=== PATIENT | female | born 1970 | race Caucasian/White ===

== ENCOUNTER 2017-12-30 16:35 | Emergency (ER) | payer OTHER ==
--- NOTE | 2017-12-30 18:07 | EDPHY ---
H & P Time Seen by Provider: 12/30/17 18:06 HPI/ROS: Chief complaint. Dog bite to upper lip HPI. 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 She was transporting dogs from [facility] to [facility]. She was placing the puppy and a kennel and then down in the dog reached up and better in the upper lip. It was irrigated at the scene. Patient was in [place] at that time and drove to [place]. Patient would like a plastic surgeon and there was apparently no plastic surgeon available in [place]. ROS Constitutional. no fever/chills, no weakness Eyes. no problems with vision ENT. no sore throat, no nasal drainage Cardiovascular. no chest pain Respiratory. no shortness of breath, no cough Abdominal. no abdominal pain, no nausea/vomiting, no diarrhea . no problems urinating MS. no calf pain/swelling, no neck/back pain, no joint pain Skin. Laceration to upper lip Lymph. no swollen glands Neuro. no headache, no dizziness, no difficulty walking or with speech Past Medical/Surgical History: Healthy Social History: , nonsmoker, no alcohol Smoking Status: Never smoked Physical Exam: General Appearance: Alert well-developed female mild distress vital signs stable Eyes: Pupils equal and round no pallor or injection. ENT, Mouth: Mucous membranes are moist. Respiratory: There are no retractions, lungs are clear to auscultation. Cardiovascular: Regular rate and rhythm. Gastrointestinal: Abdomen is soft and nontender, no masses, bowel sounds normal. Neurological: Awake and alert, sensory and motor exams grossly normal. Skin: 1 cm vertically oriented laceration through the vermilion border in the right upper lip Musculoskeletal: Neck is supple nontender. Extremities symmetrical, full range of motion. Psychiatric: Patient is oriented X 3, there is no agitation. Constitutional: Initial Vital Signs Temperature (C) 36.6 C 12/30/17 16:40 Heart Rate 72 12/30/17 16:40 Respiratory Rate 16 12/30/17 16:40 Blood Pressure 122/89 H 12/30/17 16:40 O2 Sat (%) 97 12/30/17 16:40 O2 Delivery Mode Room Air Allergies/Adverse Reactions: No Known Allergies Allergy (Unverified 12/30/17 16:43) Home Medications: Medication Instructions Recorded NK [No Known Home Meds] 12/30/17 Medical Decision Making Procedures: Procedure: Laceration repair. Verbal consent was obtained from the patient. The 1.5 cm laceration on the right upper lip through the vermilion border was anesthetized in the usual fashion. The wound was irrigated, draped and explored to its base with a gloved finger. There were no deep structures involved. No tendon injury was identified. The wound was repaired with seven 6-0 prolene sutures. The wound repair was simple. The procedure was performed by myself. ED Course/Re-evaluation: I consulted and discussed case with Dr. Gomez and carlos I am her for plastic surgery. He would like to repaired in the office tomorrow morning at 9:00 a.m.. I a emphasized to Dr. Carlos JOHNSON that the laceration was at noon. Dr. Clark recommends Neosporin, Xeroform and then being seen in the office tomorrow morning at 9. I have discussed this treatment plan with the patient . The patient would like the laceration repaired tonight. She is comfortable with me repairing the laceration On serial evaluations patient remains stable. She and I discussed treatment plan, criteria for return and importance of follow-up and further evaluation. Differential Diagnosis: I considered foreign body, infection potential of wound. Departure - Departure Disposition: Home, Routine, Self-Care Clinical Impression: Facial laceration Qualifiers: Encounter type: initial encounter Qualified Code(s): S01.81XA - Laceration without foreign body of other part of head, initial encounter Condition: Good Instructions: Care For Your Stitches (ED) Additional Instructions: Ice to upper lip tonight to help prevent swelling Antibiotic ointment twice daily for the next 3-4 days You may shower and wash your hair with stitches in. Return for signs of infection Stitches out 5 days Referrals: NANNETTE SRIVASTAVA [Other] - As per Instructions
[2017-12-30 19:43] VITALS: BP 134/72
== END 2017-12-30 19:44 | disposition home or self-care (01) ==
PROC: 0CQ0XZZ Repair Upper Lip, External Approach (ICD-10-PCS; principal; 2017-12-30)
DX: S01.511A Laceration without foreign body of lip, initial encounter (principal); W54.0XXA Bitten by dog, initial encounter